=== PATIENT | female | born 1975 | race Caucasian/White ===

== ENCOUNTER → 2017-03-02 | Outpatient (CLI) | payer BC | LOC: FIMAGING 13:26 | PROVIDERS: ATTEND Advanced Practice Midwife | DX: O09.512 Supervision of elderly primigravida, second trimester (principal); Z3A.19 19 weeks gestation of pregnancy ==

== ENCOUNTER → 2017-03-30 | Outpatient (CLI) | payer BC | LOC: FIMAGING 08:26 | PROVIDERS: ATTEND Advanced Practice Midwife | DX: O09.512 Supervision of elderly primigravida, second trimester (principal); O09.812 Supervision of pregnancy resulting from assisted reproductive technology, second trimester; Z3A.23 23 weeks gestation of pregnancy ==

== ENCOUNTER 2017-07-20 06:00 | Inpatient (IN) | payer BC ==
--- NOTE | 2017-07-21 12:47 | PDGENHP ---
History and Physical - Chief Complaint IOL 39 wks, Elective, AMA - History of Present Illness Ramona is a very pleasant 41 yo G1 now at 39wks by IVF FET transfer date who presents for scheduled IOL. She was 1cm in clinic yesterday and had holey balloon placed by [place]. Had some irregular cramps overnight, but nothing terrible. Was delayed a bit in starting things this AM bc of busy staffing issues on L&D. Pregnany only really complicated by AMA and IF . Did have 3rd tri growth US (reassuring) and normal echo. Had testing from 36 wks onward that was also reassuring w/ NSTs and TEREZA. History Information - Allergies/Home Medication List Allergies/Adverse Reactions: No Known Allergies Allergy (Unverified 07/21/17 12:31) Home Medications: Ferrous Sulfate [Feosol] 325 mg PO 07/21/17 [Last Taken 1 Day Ago ~07/20/17] Vit27&Calcium/Iron/FA [] 07/21/17 [Last Taken 1 Day Ago ~07/20] I have personally reviewed and updated: family history, medical history, social history, surgical history Past Medical History: Anemia, Infertility - Surgical History Reports: no pertinent surgical hx Review of Systems Review of Systems: ROS: 10pt was reviewed & negative except for what was stated in HPI & below Physical Exam Physical Exam: Pleasant, NAD, Belly is soft, gravid. Lab Data & Imaging Review 07/21/17 12:45 Laboratory Tests 05/29/14 05/29/14 06/30/16 11:40 11:55 12:00 Gestat Glucose Screen Alpha Fetoprotein 25-OH Vitamin D Total 41.2 TSH 1.140 RPR C.trachomatis RNA (TMA) NEGATIVE Hep Bs Antigen N.gonorrhoeae RNA (TMA) NEGATIVE HPV High Risk NEGATIVE Rubella IgG Antibody Group B Strep DNA 12/27/16 12/27/16 03/06/17 09:50 09:50 12:30 Gestat Glucose Screen Alpha Fetoprotein See Comment 25-OH Vitamin D Total TSH RPR NONREACTIVE C.trachomatis RNA (TMA) Hep Bs Antigen NEGATIVE N.gonorrhoeae RNA (TMA) HPV High Risk Rubella IgG Antibody 5.89 Group B Strep DNA 04/23/17 06/30/17 12:05 Unknown Gestat Glucose Screen 97 Alpha Fetoprotein 25-OH Vitamin D Total TSH RPR C.trachomatis RNA (TMA) Hep Bs Antigen N.gonorrhoeae RNA (TMA) HPV High Risk Rubella IgG Antibody Group B Strep DNA POSITIVE H Assessment & Plan Assessment: 41 yo G1 at 39w0d here for elective IOL. - Routine admission orders. - Plan will be to leave balloon in place for now and start Pitocin. If/when balloon falls out can recheck and consider AROM at that time. May take balloon down to expedite that in a few hrs after we've established regular uncomfortable ctx's. - GBS positive - Ampicillin once in labor. - Rubella non-imune - will need PP MMR.
[2017-07-21] MEDS ORDERED: LR 500 ML IV PRN (12:48)
[2017-07-21] MEDS ORDERED: MISOPROSTOL 200 MCG TAB PO PRN (12:48)
[2017-07-21] MEDS ORDERED: TERBUTALINE SULFATE 1 MG/ML VIAL IV PRN (12:48)
[2017-07-21] MEDS ORDERED: EPSOM SALT 454 GM TP PRN (12:48)
[2017-07-21] MEDS ORDERED: OXYTOCIN/RINGERS LACTATE 1,000 ML IV PRN (12:48)
[2017-07-21] MEDS ORDERED: IBUPROFEN 600 MG TAB PO PRN (12:48)
[2017-07-21] MEDS ORDERED: LIDOCAINE 1% 300 MG/30 ML SDV SC PRN (12:48)
[2017-07-21] MEDS ORDERED: AMMONIA AROMATIC 1 EACH AMP IH PRN (12:48)
[2017-07-21] MEDS ORDERED: OLIVE OIL 118 ML BTL MISC PRN (12:48)
[2017-07-21] MEDS ORDERED: AMPICILLIN SODIUM 2 GM in NS 100 ML IV ONE ×2 (13:04→19:15)
[2017-07-21] MEDS: OXYTOCIN/RINGERS LACTATE 500 ML IV SCH (13:20)
[2017-07-21] MEDS: LR 1,000 ML IV PRN (13:20)
[2017-07-21 13:21] LABS: PLATELET COUNT 217 10^3/uL (150-400)
[2017-07-21] MEDS ORDERED: LIDOCAINE 1% 300 MG/30 ML SDV ONE (14:59)
[2017-07-21] MEDS ORDERED: OXYTOCIN 10 UNIT/ML VIAL ONE (15:00)
[2017-07-21] MEDS ORDERED: OLIVE OIL 118 ML BTL ONE (15:00)
[2017-07-21] MEDS ORDERED: AMMONIA AROMATIC 1 EACH AMP IH ONE (15:00)
[2017-07-21] MEDS ORDERED: MISOPROSTOL 200 MCG TAB ONE (15:00)
[2017-07-21] MEDS ORDERED: AMPICILLIN SODIUM 1 GM in NS 50 ML IV SCH ×2 (17:07→23:00)
[2017-07-21] MEDS ORDERED: diphenhydrAMINE 25 MG CAP PO PRN (21:58)
--- NOTE | 2017-07-22 02:42 | OBPROG ---
Labor Progress Note Assessment/Plan: Assessment: Talked to Ramona about options and I'm fine with turning Pit off and having her get some rest and then restarting in the AM with Pit and AROM. Will dc Pit now, monitor for 2 hrs, then can come off monitor. Will start Pit back up and 5am and can AROM when first checked by Angie in the AM. Received 2g Amp loading dose, will give that dose again starting at 5am, then 1 g/hr. Subjective/Intrapartum Course: Update: Today was started Pitocin for Ramona w/ balloon still in place. When she had regular ctx's (never painful) I took down the balloon at 80/-2 and offered AROM but pt wanted to wait. Ultimately Pit got to 18 without really any painful ctx's and when offered AROM in the late evening vs sleep overnight and AROM and Pit in the AM, she'd prefer the later. Objective: 07/21/17 12:45 Patient ABO/Rh O POSITIVE 07/21/17 12:45 - SVE Dilation (cm): 1 Effacement (%): 80 Station: -2 Membranes: Intact - Contraction Pattern Assessment Current Contraction Pattern: Regular - FHR Assessment Rogers FHR (bpm): 135 FHR Pattern Variability: Moderate FHR Category: 1 Oxytocin Orders Assessment - Pre-Induction/Augmentation Assessment Gestational Age: 39 week(s) and 3 day(s) ICD10 Worksheet Patient Problems: Problems Problem Status Onset AMA (advanced maternal age) primigravida 35+ Acute - ICD10 Problem Qualifiers (1) AMA (advanced maternal age) primigravida 35+ Qualifiers: Trimester: third trimester Qualified Code(s): O09.513 - Supervision of elderly primigravida, third trimester
[2017-07-22] MEDS ORDERED: AMPICILLIN SODIUM 2 GM in NS 100 ML IV ONE (05:00)
[2017-07-22] MEDS: OXYTOCIN/RINGERS LACTATE 500 ML IV SCH (05:55)
[2017-07-22] MEDS: AMPICILLIN SODIUM 1 GM in NS 50 ML IV SCH ×5 (06:13→23:49)
--- NOTE | 2017-07-22 09:19 | OBPROG ---
Labor Progress Note Assessment/Plan: Assessment: [id number] with IUP@ 39-2wks Elective IOL GBS + Cat 1 FHR tracing AMA IVF anemia Rubella NI Plan: cont IOL- knight balloon inserted will cont pitocin and IV abx plan to AROM once knight out pain management PRN anticipate Subjective/Intrapartum Course: Update: Today was started Pitocin for Ramona w/ balloon still in place. When she had regular ctx's (never painful) I took down the balloon at 1/80/-2 and offered AROM but pt wanted to wait. Ultimately Pit got to 18 without really any painful ctx's and when offered AROM in the late evening vs sleep overnight and AROM and Pit in the AM, she'd prefer the later. 07/22/17 09:18 Pt doing well. She denies any pain. She was able to rest throughout the night. She did eat breakfast. She is ready to "restart" her IOL. She is agreeable to knight balloon. Objective: 07/21/17 12:45 Patient ABO/Rh O POSITIVE 07/21/17 12:45 - SVE Dilation (cm): 1 Effacement (%): 50 Station: -2 Membranes: Intact - Contraction Pattern Assessment Current Contraction Pattern: Regular - FHR Assessment Rogers FHR Pattern Variability: Moderate FHR Category: 1 - Procedures Non-surgical Procedures: Other (Specify) (knight balloon placed with 40mL, pt tolerated procedure well) - Physical Exam General Appearance: WD/WN, alert, no apparent distress Neck: supple Abdomen: non-tender, soft Extremities: normal inspection Skin: normal color, warm/dry Neuro/Psych: no motor/sensory deficits, alert, normal mood/affect, oriented x 3 Oxytocin Orders Assessment - Pre-Induction/Augmentation Assessment Gestational Age: 39 week(s) and 3 day(s) ICD10 Worksheet Patient Problems: Problems Problem Status Onset AMA (advanced maternal age) primigravida 35+ Acute Conceived by in vitro fertilization Acute Encounter for induction of labor Acute Positive GBS test Acute - ICD10 Problem Qualifiers (1) Encounter for induction of labor (2) Conceived by in vitro fertilization (3) Positive GBS test
[2017-07-22] MEDS: LR 1,000 ML IV PRN (10:27)
--- NOTE | 2017-07-22 13:21 | OBPROG ---
Labor Progress Note Assessment/Plan: Assessment: [id number] with IUP@ 39-2wks Elective IOL GBS + Cat 1 FHR tracing AMA IVF anemia Rubella NI Plan: pt will consider AROM- as i recommended pain management PRN anticipate 07/22/17 13:17 Subjective/Intrapartum Course: Update: Today was started Pitocin for Ramona w/ balloon still in place. When she had regular ctx's (never painful) I took down the balloon at 1/80/-2 and offered AROM but pt wanted to wait. Ultimately Pit got to 18 without really any painful ctx's and when offered AROM in the late evening vs sleep overnight and AROM and Pit in the AM, she'd prefer the later. 07/22/17 09:18 Pt doing well. She denies any pain. She was able to rest throughout the night. She did eat breakfast. She is ready to "restart" her IOL. She is agreeable to knight balloon. 07/22/17 13:17 Pt doing well, denies any pain. She is ambulating and moving well. Knight balloon out at 12:30pm. agreeable to membrane sweep- declines arom at this time. Objective: 07/21/17 12:45 Patient ABO/Rh O POSITIVE 07/21/17 12:45 - SVE Dilation (cm): 4 Effacement (%): 50 Station: -2 Membranes: Intact - Contraction Pattern Assessment Current Contraction Pattern: Regular - FHR Assessment Rogers FHR (bpm): 135 FHR Pattern Variability: Moderate FHR Category: 1 - Procedures Non-surgical Procedures: Other (Specify) (Knight balloon @ 1230) Oxytocin Orders Assessment - Pre-Induction/Augmentation Assessment Gestational Age: 39 week(s) and 3 day(s) ICD10 Worksheet Patient Problems: Problems Problem Status Onset AMA (advanced maternal age) primigravida 35+ Acute Conceived by in vitro fertilization Acute Encounter for induction of labor Acute Positive GBS test Acute - ICD10 Problem Qualifiers (1) Encounter for induction of labor (2) Conceived by in vitro fertilization (3) Positive GBS test
--- NOTE | 2017-07-22 14:00 | OBPROG ---
Labor Progress Note Assessment/Plan: Assessment: [id number] with IUP@ 39-2wks Elective IOL GBS + Cat 1 FHR tracing AMA IVF anemia Rubella NI AROM- clear Plan: half pitocin at this time, will cont to increase reassess 2-4hr/PRN anticipate Subjective/Intrapartum Course: Update: Today was started Pitocin for Ramona w/ balloon still in place. When she had regular ctx's (never painful) I took down the balloon at /-2 and offered AROM but pt wanted to wait. Ultimately Pit got to 18 without really any painful ctx's and when offered AROM in the late evening vs sleep overnight and AROM and Pit in the AM, she'd prefer the later. 07/22/17 09:18 Pt doing well. She denies any pain. She was able to rest throughout the night. She did eat breakfast. She is ready to "restart" her IOL. She is agreeable to knight balloon. 07/22/17 13:17 Pt doing well, denies any pain. She is ambulating and moving well. Knight balloon out at 12:30pm. agreeable to membrane sweep- declines arom at this time. Objective: 07/21/17 12:45 Patient ABO/Rh O POSITIVE 07/21/17 12:45 - SVE Dilation (cm): 4 Effacement (%): 50 Station: -2 Membranes: AROM Amniotic Fluid Color: Clear - Contraction Pattern Assessment Current Contraction Pattern: Regular - Procedures Non-surgical Procedures: Amniotomy, Other (Specify) (Knight balloon @ 1230) Oxytocin Orders Assessment - Pre-Induction/Augmentation Assessment Gestational Age: 39 week(s) and 3 day(s) ICD10 Worksheet Patient Problems: Problems Problem Status Onset AMA (advanced maternal age) primigravida 35+ Acute Conceived by in vitro fertilization Acute Encounter for induction of labor Acute Positive GBS test Acute - ICD10 Problem Qualifiers (1) Encounter for induction of labor (2) Conceived by in vitro fertilization (3) Positive GBS test
--- NOTE | 2017-07-22 16:22 | OBPROG ---
Labor Progress Note Assessment/Plan: Assessment: [id number] with IUP@ 39-2wks Elective IOL GBS + Cat 1 FHR tracing AMA IVF anemia Rubella NI AROM- clear Plan: cont to increase pitocin pain management PRN reassess 2-4hr/PRN anticipate Subjective/Intrapartum Course: Update: Today was started Pitocin for Ramona w/ balloon still in place. When she had regular ctx's (never painful) I took down the balloon at 80/-2 and offered AROM but pt wanted to wait. Ultimately Pit got to 18 without really any painful ctx's and when offered AROM in the late evening vs sleep overnight and AROM and Pit in the AM, she'd prefer the later. 07/22/17 09:18 Pt doing well. She denies any pain. She was able to rest throughout the night. She did eat breakfast. She is ready to "restart" her IOL. She is agreeable to knight balloon. 07/22/17 13:17 Pt doing well, denies any pain. She is ambulating and moving well. Knight balloon out at 12:30pm. agreeable to membrane sweep- declines arom at this time. 07/22/17 16:13 Pt doing well, she is resting in bed. She denies any pain or pressure. Deniz, , is at BS and supportive. Objective: 07/21/17 12:45 Patient ABO/Rh O POSITIVE 07/21/17 12:45 - SVE Membranes: AROM Amniotic Fluid Color: Clear - Contraction Pattern Assessment Current Contraction Pattern: Regular - FHR Assessment Rogers FHR (bpm): 135 FHR Pattern Variability: Moderate FHR Category: 1 - Procedures Non-surgical Procedures: Amniotomy, Other (Specify) (Knight balloon @ 1230) Oxytocin Orders Assessment - Pre-Induction/Augmentation Assessment Gestational Age: 39 week(s) and 3 day(s) ICD10 Worksheet Patient Problems: Problems Problem Status Onset AMA (advanced maternal age) primigravida 35+ Acute Conceived by in vitro fertilization Acute Encounter for induction of labor Acute Positive GBS test Acute - ICD10 Problem Qualifiers (1) Encounter for induction of labor (2) Conceived by in vitro fertilization (3) Positive GBS test
--- NOTE | 2017-07-22 21:34 | OBPROG ---
Labor Progress Note Assessment/Plan: Assessment: [id number] with IUP@ 39-2wks Elective IOL- pitocin @ GBS + Cat 1 FHR tracing AMA IVF anemia Rubella NI AROM- clear Ketonuria Plan: IUPC placed at this time cont pitocin will hang D5LR (500mL) reassess PRN 07/22/17 22:43 Subjective/Intrapartum Course: Update: Today was started Pitocin for Ramona w/ balloon still in place. When she had regular ctx's (never painful) I took down the balloon at /-2 and offered AROM but pt wanted to wait. Ultimately Pit got to 18 without really any painful ctx's and when offered AROM in the late evening vs sleep overnight and AROM and Pit in the AM, she'd prefer the later. 07/22/17 09:18 Pt doing well. She denies any pain. She was able to rest throughout the night. She did eat breakfast. She is ready to "restart" her IOL. She is agreeable to knight balloon. 07/22/17 13:17 Pt doing well, denies any pain. She is ambulating and moving well. Knight balloon out at 12:30pm. agreeable to membrane sweep- declines arom at this time. 07/22/17 16:13 Pt doing well, she is resting in bed. She denies any pain or pressure. Deniz, , is at BS and supportive. 07/22/17 18:25 Pt vomiting and having chills. She denies any pain or pressure. she is feeling more with contractions, having to breathe through them. Desires to labor in alternative positions (squat bar, ball, stool, etc). Deniz is at BS and supportive. Objective: 07/21/17 12:45 Patient ABO/Rh O POSITIVE 07/21/17 12:45 - SVE Dilation (cm): 4 Effacement (%): 50 Station: -2 Membranes: AROM Amniotic Fluid Color: Clear - Contraction Pattern Assessment Current Contraction Pattern: Regular - Procedures Non-surgical Procedures: IUPC (placed @ 1815) Oxytocin Orders Assessment - Pre-Induction/Augmentation Assessment Gestational Age: 39 week(s) and 3 day(s) ICD10 Worksheet Patient Problems: Problems Problem Status Onset AMA (advanced maternal age) primigravida 35+ Acute Conceived by in vitro fertilization Acute Encounter for induction of labor Acute Positive GBS test Acute - ICD10 Problem Qualifiers (1) Encounter for induction of labor (2) Conceived by in vitro fertilization (3) Positive GBS test
[2017-07-22] MEDS ORDERED: BUPIVACAINE 0.25% 30 ML SDV ONE (21:53)
[2017-07-22] MEDS ORDERED: PHENYLEPHRINE HCL 100 MCG/ML SYR ONE (21:54)
[2017-07-22] MEDS ORDERED: fentaNYL 200 MCG, BUPIVACAINE 0.5% 20 ML in NS 100 ML EP SCH (22:00)
--- NOTE | 2017-07-22 22:39 | PREANESOB ---
Obstetric Pre-Anesthesia Info - General Info Proposed Procedure: labor : 1 Para: 0 ZANE: 07/25/17 Gestational Age: 39 week(s) and 3 day(s) - Info Status: Full Term FHR Pattern: Reassuring - Labor Status Cervical Dilation per last OB SVE: 4 Station per last OB SVE: -2 Amniotic Fluid Color: Clear Pitocin: In Use Indications for Labor Analgesia: Augmentation of Labor, Pain Control Labor Epidural: Yes Anesthesia Allergies/Adverse Reactions: Allergy/AdvReac Type Severity Reaction Status Date / Time No Known Allergies Allergy Unverified 07/21/17 12:31 Home Medications: Medication Instructions Recorded Ferrous Sulfate [Feosol] 325 mg PO 07/21/17 Vit27&Calcium/Iron/FA 07/21/17 [] Visit Medications: Generic Name Dose Route Start Last Admin Trade Name Freq PRN Reason Stop Dose Admin Ammonia (Aromatic Spirit) 1 each 07/21/17 12:48 Ammonia Aromatic IH 07/31/17 12:47 ONCE PRN Fainting Diphenhydramine HCl 25 - 50 mg 07/21/17 21:58 07/21/17 22:09 Benadryl PO 01/17/18 21:57 25 mg HS PRN Administration INSOMNIA Oxytocin/Lactated Ringer's 1,000 mls @ 0 mls/hr 07/21/17 12:48 Pitocin 20 Units/Lr (Premix) IV PRN PRN Post bleeding As Directed Oxytocin/Lactated Ringer's 500 mls @ 0 mls/hr 07/21/17 13:00 07/22/17 05:55 Pitocin 30 Units/Lr (Premix) IV 01/17/18 12:59 500 mls CONT JARRED Administration Protocol Per Protocol Ampicillin Sodium 1 gm/ Sodium 50 mls @ 100 mls/hr 07/22/17 06:00 07/22/17 19 :04 Chloride IV 08/21/17 05:59 50 mls Q4H JARRED Administration Protocol Fentanyl 200 mcg/ Bupivacaine 100 mls @ 0 mls/hr 07/22/17 22:00 HCl 20 ml/ Sodium Chloride EP 08/01/17 21:59 CONT JARRED Protocol As Directed Ibuprofen 600 mg 07/21/17 12:48 Motrin PO ONCE PRN post , pain Lidocaine HCl 300 mg 07/21/17 12:48 Lidocaine Hcl 1% SC 01/17/18 12:47 ONCE PRN episiotomy Magnesium Sulfate 454 gm 07/21/17 12:48 Epsom Salt TP 01/17/18 12:47 Q1H PRN perineal discomfort Misoprostol 800 - 1,000 mcg 07/21/17 12:48 Cytotec PO 01/17/18 12:47 ONCE PRN Vaginal Atony/Bleeding Tarlton Oil 118 ml 07/21/17 12:48 Sweet Oil MISC 01/17/18 12:47 ONCE PRN perineal massage Terbutaline Sulfate 0.25 mg 07/21/17 12:48 Brethine IV 01/17/18 12:47 ONCE PRN Tachysystole Discontinued Medications Generic Name Dose Route Start Last Admin Trade Name Mauri PRN Reason Stop Dose Admin Ammonia (Aromatic Spirit) Confirm 07/21/17 15:00 Ammonia Aromatic Administered 07/21/17 15:01 Dose 1 each IH .STK-MED ONE Bupivacaine HCl Confirm 07/22/17 21:53 Sensorcaine 0.25% Sdv Administered 07/22/17 21:54 Dose 30 ml .ROUTE .STK-MED ONE Lactated Ringer's 1,000 mls @ 0 mls/hr 07/21/17 12:48 07/22/17 10:27 Lr IV 07/22/17 12:47 1,000 mls PRN PRN Administration SEE PROTOCOL CONDITIONS Protocol Per Protocol Lactated Ringer's 500 mls @ 500 mls/hr 07/21/17 12:48 Lr IV 07/22/17 12:48 PRN PRN Maternal Hypotension Ampicillin Sodium 2 gm/ Sodium 110 mls @ 220 mls/hr 07/21/17 13:04 07/21/17 15:33 Chloride IV 07/21/17 13:33 Not Given ONCE ONE Protocol Ampicillin Sodium 1 gm/ Sodium 50 mls @ 100 mls/hr 07/21/17 17:07 07/21/17 21 :02 Chloride IV 08/20/17 17:06 Not Given Q4H JARRED Protocol Ampicillin Sodium 2 gm/ Sodium 110 mls @ 220 mls/hr 07/21/17 19:15 07/21/17 19:45 Chloride IV 07/21/17 19:44 110 mls ONCE ONE Administration Protocol Ampicillin Sodium 1 gm/ Sodium 50 mls @ 100 mls/hr 07/21/17 23:00 07/21/17 22 :12 Chloride IV 08/20/17 22:59 Not Given Q4H JARRED Protocol Ampicillin Sodium 2 gm/ Sodium 110 mls @ 220 mls/hr 07/22/17 05:00 07/22/17 06:23 Chloride IV 07/22/17 05:29 Not Given ONCE ONE Protocol Lidocaine HCl Confirm 07/21/17 14:59 Lidocaine Hcl 1% Administered 07/21/17 15:00 Dose 300 mg .ROUTE .STK-MED ONE Misoprostol Confirm 07/21/17 15:00 Cytotec Administered 07/21/17 15:01 Dose 1,000 mcg .ROUTE .STK-MED ONE Tarlton Oil Confirm 07/21/17 15:00 Sweet Oil Administered 07/21/17 15:01 Dose 118 ml .ROUTE .STK-MED ONE Oxytocin Confirm 07/21/17 15:00 Pitocin Administered 07/21/17 15:01 Dose 40 unit .ROUTE .STK-MED ONE Phenylephrine HCl Confirm 07/22/17 21:54 Neosynephrine Administered 07/22/17 21:55 Dose 1,000 mcg .ROUTE .STK-MED ONE - Anesthesia History Response to Local Anesthetics: Normal Anesthesia & Operative History: No Prior Problems Family Anesthesia History: Not Applicable - Vital Signs Height/Weight (Nursing): Height 165.1 cm Weight 63.049 kg - Focused Exam Neck exam: FROM Mallampati Score: Class 1 Mouth exam: normal dental/mouth exam Pulmonary: no respiratory distress Cardiovascular: regular rate and rhythym Labs: 07/21/17 12:45 Patient ABO/Rh O POSITIVE 07/21/17 12:45 - Plan Anesthetic Plan: KURT Consent Signed and on Chart: Yes Patient/Guardian Understands and Agrees to Plan: Yes
--- NOTE | 2017-07-22 22:39 | POSTANESTH ---
Post Anesthetic Evaluation Cardiovascular Status: Normal, Stable Respiratory Status: Normal, Stable Level of Consciousness/Mental Status: Can Participate in Eval, Alert and Oriented Pain Control: Adequate, Prn Tx Ordered Nausea/Vomiting Control: Adequate, Prn Tx Ordered Complications Possibly Related to Anesthesia: None Noted
--- NOTE | 2017-07-22 22:46 | OBPROG ---
Labor Progress Note Assessment/Plan: Assessment: [id number] with IUP@ 39-2wks Elective IOL GBS + Cat 1 FHR tracing AMA IVF anemia Rubella NI AROM- clear KURT in place Plan: cont pitocin/IV abx reassess PRN discussed prolong ROM, need for adequate contractions reviewed POC with Dr Lau agrees with POC 07/22/17 22:46 Subjective/Intrapartum Course: Update: Today was started Pitocin for Ramona w/ balloon still in place. When she had regular ctx's (never painful) I took down the balloon at /-2 and offered AROM but pt wanted to wait. Ultimately Pit got to 18 without really any painful ctx's and when offered AROM in the late evening vs sleep overnight and AROM and Pit in the AM, she'd prefer the later. 07/22/17 09:18 Pt doing well. She denies any pain. She was able to rest throughout the night. She did eat breakfast. She is ready to "restart" her IOL. She is agreeable to knight balloon. 07/22/17 13:17 Pt doing well, denies any pain. She is ambulating and moving well. Knight balloon out at 12:30pm. agreeable to membrane sweep- declines arom at this time. 07/22/17 16:13 Pt doing well, she is resting in bed. She denies any pain or pressure. Deniz, , is at BS and supportive. 07/22/17 18:25 Pt vomiting and having chills. She denies any pain or pressure. she is feeling more with contractions, having to breathe through them. Desires to labor in alternative positions (squat bar, ball, stool, etc). Deniz is at BS and supportive. 07/22/17 22:44 Pt doing well, KURT just placed. She is resting. Objective: 07/21/17 12:45 Patient ABO/Rh O POSITIVE 07/21/17 12:45 - SVE Membranes: AROM Amniotic Fluid Color: Clear - Contraction Pattern Assessment Current Contraction Pattern: Regular - Procedures Non-surgical Procedures: IUPC (placed @ 1815) Oxytocin Orders Assessment - Pre-Induction/Augmentation Assessment Gestational Age: 39 week(s) and 3 day(s) ICD10 Worksheet Patient Problems: Problems Problem Status Onset AMA (advanced maternal age) primigravida 35+ Acute Conceived by in vitro fertilization Acute Encounter for induction of labor Acute Positive GBS test Acute - ICD10 Problem Qualifiers (1) Encounter for induction of labor (2) Conceived by in vitro fertilization (3) Positive GBS test
--- NOTE | 2017-07-23 03:38 | OBPROG ---
Labor Progress Note Assessment/Plan: Assessment: [id number] with IUP@ 39-2wks Elective IOL GBS + Cat 1 FHR tracing AMA IVF anemia Rubella NI AROM- clear KURT in place Plan: cont pitocin/IV abx attempt different positions to promote descent will cont as pt has made small amt of change if recurrent decels, unresolved with position changes will make decision to proceed with c/s reviewed with Lisa Lau- agrees with POC Subjective/Intrapartum Course: Update: Today was started Pitocin for Ramona w/ balloon still in place. When she had regular ctx's (never painful) I took down the balloon at 1/80/-2 and offered AROM but pt wanted to wait. Ultimately Pit got to 18 without really any painful ctx's and when offered AROM in the late evening vs sleep overnight and AROM and Pit in the AM, she'd prefer the later. 07/22/17 09:18 Pt doing well. She denies any pain. She was able to rest throughout the night. She did eat breakfast. She is ready to "restart" her IOL. She is agreeable to knight balloon. 07/22/17 13:17 Pt doing well, denies any pain. She is ambulating and moving well. Knight balloon out at 12:30pm. agreeable to membrane sweep- declines arom at this time. 07/22/17 16:13 Pt doing well, she is resting in bed. She denies any pain or pressure. Deniz, , is at BS and supportive. 07/22/17 18:25 Pt vomiting and having chills. She denies any pain or pressure. she is feeling more with contractions, having to breathe through them. Desires to labor in alternative positions (squat bar, ball, stool, etc). Deniz is at BS and supportive. 07/22/17 22:44 Pt doing well, KURT just placed. She is resting. 07/23/17 03:38 Pt doing well, denies any pain. She is comfortable with KURT, she has been able to rest more now that she is more comfortable. She is been sitting in high fowlers position as that is best for FHR. She does not wish to proceed with C/S , aware of protracted labor course. at BS and supportive. Objective: 07/21/17 12:45 Patient ABO/Rh O POSITIVE 07/21/17 12:45 - SVE Dilation (cm): 5 Effacement (%): 75 Station: -1 Membranes: AROM Amniotic Fluid Color: Clear - Contraction Pattern Assessment Current Contraction Pattern: Regular - Procedures Non-surgical Procedures: IUPC (placed @ 1815) Oxytocin Orders Assessment - Pre-Induction/Augmentation Assessment Gestational Age: 39 week(s) and 3 day(s) ICD10 Worksheet Patient Problems: Problems Problem Status Onset AMA (advanced maternal age) primigravida 35+ Acute Conceived by in vitro fertilization Acute Encounter for induction of labor Acute Positive GBS test Acute - ICD10 Problem Qualifiers (1) Encounter for induction of labor (2) Conceived by in vitro fertilization (3) Positive GBS test
[2017-07-23] MEDS: AMPICILLIN SODIUM 1 GM in NS 100 ML IV SCH ×2 (04:48→19:09)
[2017-07-23] MEDS ORDERED: LIDOCAINE 2% 5 ML SDV ONE ×2 (07:49)
[2017-07-23] MEDS ORDERED: OXYTOCIN 100 UNITS/10 ML VIAL ONE (07:49)
[2017-07-23] MEDS ORDERED: LIDO/EPI 2% **for epidural** 20 ML SDV ONE (07:49)
[2017-07-23] MEDS ORDERED: PHENYLEPHRINE 10 MG/ML SDV ONE (07:49)
[2017-07-23] MEDS ORDERED: fentaNYL 100 MCG/2 ML INJ ONE (07:50)
[2017-07-23] MEDS ORDERED: morphINE PF 5 MG/10 ML INJ ONE (07:51)
--- NOTE | 2017-07-23 07:55 | OBPROG ---
Labor Progress Note Assessment/Plan: Assessment: NOTE WRITTEN AFTER EVENT IUP at 39w5d induction - pushing now approx 1 1/2 hours, arrest of descent with persistent OT attempted vacuum assistance, unsuccessful Plan: proceed with c/s by Dr Glover 07/23/17 07:51 Subjective/Intrapartum Course: Update: Today was started Pitocin for Ramona w/ balloon still in place. When she had regular ctx's (never painful) I took down the balloon at /-2 and offered AROM but pt wanted to wait. Ultimately Pit got to 18 without really any painful ctx's and when offered AROM in the late evening vs sleep overnight and AROM and Pit in the AM, she'd prefer the later. 07/22/17 09:18 Pt doing well. She denies any pain. She was able to rest throughout the night. She did eat breakfast. She is ready to "restart" her IOL. She is agreeable to knight balloon. 07/22/17 13:17 Pt doing well, denies any pain. She is ambulating and moving well. Knight balloon out at 12:30pm. agreeable to membrane sweep- declines arom at this time. 07/22/17 16:13 Pt doing well, she is resting in bed. She denies any pain or pressure. Deniz, , is at BS and supportive. 07/22/17 18:25 Pt vomiting and having chills. She denies any pain or pressure. she is feeling more with contractions, having to breathe through them. Desires to labor in alternative positions (squat bar, ball, stool, etc). Deniz is at BS and supportive. 07/22/17 22:44 Pt doing well, KURT just placed. She is resting. 07/23/17 03:38 Pt doing well, denies any pain. She is comfortable with KURT, she has been able to rest more now that she is more comfortable. She is been sitting in high fowlers position as that is best for FHR. She does not wish to proceed with C/S , aware of protracted labor course. at BS and supportive. 07/23/17 07:55 I was called into assess FHTs and labor progress approx 5am. Pt has had off/on late decels throughout much of labor with more cervical change since 4 am - she was 5 cm at 3am but progress to 8cm then complete dilation at 5:13. pt began pushing and hoped to avoid vacuum but she had rise in baseline and persistence of the late decels and I rec vacuum asst. Head at +1 station in OT position - little caput initially but has progressed over time. Pt and husb agreed and vacuum was placed and 3 pulls with ctxns, no pop-offs were done approx 6:30. no descent with assistance of vacuum. Vacuum attempt stopped but then FHTs improved and baseline back to 150s between ctxns with very reassuring variability and pt cont attempts with pushing with changes of position/sheet pull/ hand-knees etc. Pt had then add'n pushing for approx 45 min but no further descent and pt wishes to proceed with C/S for delivery. risks/ benefits discussed with pt by Dr Glover and consent to be signed later. Fhts have maintained reassuring variability and when pit stopped then baseline 140s with no decels. Dr Hernandez of anesth dosing up KURT for c/s delivery. Objective: 07/21/17 12:45 Patient ABO/Rh O POSITIVE 07/21/17 12:45 - SVE Dilation (cm): 10 Effacement (%): 100 Station: +1 Membranes: AROM Amniotic Fluid Color: Clear Dilation Complete Date: 07/23/17 Dilation Complete Time: 05:13 - Contraction Pattern Assessment Current Contraction Pattern: Regular (q 3 min on 16 mu/min pit) - FHR Assessment Rogers FHR (bpm): 140 FHR Pattern Variability: Moderate FHR Category: 2 (variable/late decels on/off) - Procedures Non-surgical Procedures: IUPC (placed @ 1815) Oxytocin Orders Assessment - Pre-Induction/Augmentation Assessment Gestational Age: 39 week(s) and 3 day(s) ICD10 Worksheet Patient Problems: Problems Problem Status Onset AMA (advanced maternal age) primigravida 35+ Acute Conceived by in vitro fertilization Acute Encounter for induction of labor Acute Positive GBS test Acute
[2017-07-23] MEDS ORDERED: ceFAZolin 2 GM in D5W 100 ML IV ONE (08:00)
[2017-07-23] MEDS ORDERED: ONDANSETRON 4 MG/2 ML VIAL ONE (09:00)
[2017-07-23] MEDS ORDERED: HYDROmorphONE/DILAUDID 1 MG/ML INJ IVP PRN (09:41)
[2017-07-23] MEDS ORDERED: fentaNYL 100 MCG/2 ML INJ IVP PRN (09:41)
[2017-07-23] MEDS ORDERED: PHENYLEPHRINE HCL 100 MCG/ML SYR IVP PRN (09:41)
[2017-07-23] MEDS ORDERED: ONDANSETRON 4 MG/2 ML VIAL IVP PRN (09:41)
[2017-07-23] MEDS ORDERED: NALOXONE HCL 0.4 MG/ML INJ IVP PRN (09:41)
[2017-07-23] MEDS ORDERED: HYDROCODONE/APAP 5/325 TAB PO PRN (09:41)
--- NOTE | 2017-07-23 09:45 | POSTANESTH ---
Post Anesthetic Evaluation Cardiovascular Status: Normal, Stable Respiratory Status: Normal, Stable Level of Consciousness/Mental Status: Can Participate in Eval Pain Control: Adequate, Prn Tx Ordered Nausea/Vomiting Control: Adequate, Prn Tx Ordered Complications Possibly Related to Anesthesia: None Noted (awake and alert in PACU, epidural regressing normally, VS stable)
[2017-07-23] MEDS ORDERED: SIMETHICONE 80 MG TAB CHEW PO PRN (10:30)
[2017-07-23] MEDS ORDERED: PROMETHAZINE HCL 25 MG/ML INJ IVP PRN (10:30)
[2017-07-23] MEDS ORDERED: DOCUSATE SODIUM 100 MG CAP PO PRN (10:30)
[2017-07-23] MEDS ORDERED: MAGNESIUM HYDROXIDE 30 ML UDCUP PO PRN (10:30)
[2017-07-23] MEDS ORDERED: LACTULOSE 20 GM/30 ML UDCUP PO PRN (10:30)
[2017-07-23] MEDS ORDERED: BISACODYL 10 MG SUPP PR PRN (10:30)
[2017-07-23] MEDS ORDERED: POLYETHYLENE GLYCOL 3350 17 GM PKT PO PRN (10:30)
--- NOTE | 2017-07-23 10:30 | OBDEL ---
Info Type: Primary Presentation at Delivery: Vertex L&D Analgesia/Anesthesia Type: Spinal GBS+: Yes Antibiotic Used for + GBS: Ampicillin Intrapartum Medications: Generic Name Dose Route Start Last Admin Trade Name Freq PRN Reason Stop Dose Admin Diphenhydramine HCl 25 - 50 mg 07/21/17 21:58 07/21/17 22:09 Benadryl PO 01/17/18 21:57 25 mg HS PRN Administration INSOMNIA Oxytocin/Lactated Ringer's 500 mls @ 0 mls/hr 07/21/17 13:00 07/22/17 05:55 Pitocin 30 Units/Lr (Premix) IV 01/17/18 12:59 500 mls CONT JARRED Administration Protocol Per Protocol Ampicillin Sodium 1 gm/ Sodium 100 mls @ 200 mls/hr 07/23/17 04:00 07/23/17 04:48 Chloride IV 08/22/17 03:59 100 mls Q4H JARRED Administration Protocol Discontinued Medications Generic Name Dose Route Start Last Admin Trade Name Frefelix PRN Reason Stop Dose Admin Lactated Ringer's 1,000 mls @ 0 mls/hr 07/21/17 12:48 07/22/17 10:27 Lr IV 07/22/17 12:47 1,000 mls PRN PRN Administration SEE PROTOCOL CONDITIONS Protocol Per Protocol Ampicillin Sodium 2 gm/ Sodium 110 mls @ 220 mls/hr 07/21/17 13:04 07/21/17 15:33 Chloride IV 07/21/17 13:33 Not Given ONCE ONE Protocol Ampicillin Sodium 1 gm/ Sodium 50 mls @ 100 mls/hr 07/21/17 17:07 07/21/17 21 :02 Chloride IV 08/20/17 17:06 Not Given Q4H JARRED Protocol Ampicillin Sodium 2 gm/ Sodium 110 mls @ 220 mls/hr 07/21/17 19:15 07/21/17 19:45 Chloride IV 07/21/17 19:44 110 mls ONCE ONE Administration Protocol Ampicillin Sodium 1 gm/ Sodium 50 mls @ 100 mls/hr 07/21/17 23:00 07/21/17 22 :12 Chloride IV 08/20/17 22:59 Not Given Q4H JARRED Protocol Ampicillin Sodium 2 gm/ Sodium 110 mls @ 220 mls/hr 07/22/17 05:00 07/22/17 06:23 Chloride IV 07/22/17 05:29 Not Given ONCE ONE Protocol Ampicillin Sodium 1 gm/ Sodium 50 mls @ 100 mls/hr 07/22/17 06:00 07/22/17 23 :49 Chloride IV 08/21/17 05:59 50 mls Q4H JARRED Administration Protocol Cefazolin Sodium 2 gm/ 100 mls @ 200 mls/hr 07/23/17 08:00 07/23/17 08:31 Dextrose IV 07/23/17 08:29 100 mls ONCALL ONE Administration - Hospital Course Intrapartum: Update: Today was started Pitocin for Ramona w/ balloon still in place. When she had regular ctx's (never painful) I took down the balloon at 80/-2 and offered AROM but pt wanted to wait. Ultimately Pit got to 18 without really any painful ctx's and when offered AROM in the late evening vs sleep overnight and AROM and Pit in the AM, she'd prefer the later. 07/22/17 09:18 Pt doing well. She denies any pain. She was able to rest throughout the night. She did eat breakfast. She is ready to "restart" her IOL. She is agreeable to knight balloon. 07/22/17 13:17 Pt doing well, denies any pain. She is ambulating and moving well. Knight balloon out at 12:30pm. agreeable to membrane sweep- declines arom at this time. 07/22/17 16:13 Pt doing well, she is resting in bed. She denies any pain or pressure. Deniz, , is at BS and supportive. 07/22/17 18:25 Pt vomiting and having chills. She denies any pain or pressure. she is feeling more with contractions, having to breathe through them. Desires to labor in alternative positions (squat bar, ball, stool, etc). Deniz is at BS and supportive. 07/22/17 22:44 Pt doing well, KURT just placed. She is resting. 07/23/17 03:38 Pt doing well, denies any pain. She is comfortable with KURT, she has been able to rest more now that she is more comfortable. She is been sitting in high fowlers position as that is best for FHR. She does not wish to proceed with C/S , aware of protracted labor course. at BS and supportive. 07/23/17 07:55 I was called into assess FHTs and labor progress approx 5am. Pt has had off/on late decels throughout much of labor with more cervical change since 4 am - she was 5 cm at 3am but progress to 8cm then complete dilation at 5:13. pt began pushing and hoped to avoid vacuum but she had rise in baseline and persistence of the late decels and I rec vacuum asst. Head at +1 station in OT position - little caput initially but has progressed over time. Pt and husb agreed and vacuum was placed and 3 pulls with ctxns, no pop-offs were done approx 6:30. no descent with assistance of vacuum. Vacuum attempt stopped but then FHTs improved and baseline back to 150s between ctxns with very reassuring variability and pt cont attempts with pushing with changes of position/sheet pull/ hand-knees etc. Pt had then add'n pushing for approx 45 min but no further descent and pt wishes to proceed with C/S for delivery. risks/ benefits discussed with pt by Dr Glover and consent to be signed later. Fhts have maintained reassuring variability and when pit stopped then baseline 140s with no decels. Dr Hernandez of anesth dosing up KURT for c/s delivery. Vaginal Delivery - Labor and Delivery Amniotic Fluid Color: Clear Dilation Complete Date: 07/23/17 Dilation Complete Time: 05:13 Non-surgical Procedures: IUPC (placed @ 1815) Cord Gases: Cord Gases Cord Blood PCO2 47.3 mmHg (37-60) 07/23/17 09:01 Cord Base Excess -3.1 mEq/L (-13.6--3.2) H 07/23/17 09:01 Cord ABG pH 7.31 (7.10-7.37) 07/23/17 09:01 Cord VBG pH 7.33 (7.20-7.42) 07/23/17 09:01 Operative Report - Delivery Pre-op Diagnoses: IUP 39 5/7 weeks, arrest of descent Post-op Diagnoses: same History of Prior Section: No Nulliparous Prior to Delivery: Yes Indications for Current Section: Arrest of Descent Procedure: Unscheduled, Low Transverse Surgeon: Lima Glover Microbial Specialist: Tania Medellin Anesthesiologist: Jr Hernandez EBL: 800 Cord Gases: Cord Gases Cord Blood PCO2 47.3 mmHg (37-60) 07/23/17 09:01 Cord Base Excess -3.1 mEq/L (-13.6--3.2) H 07/23/17 09:01 Cord ABG pH 7.31 (7.10-7.37) 07/23/17 09:01 Cord VBG pH 7.33 (7.20-7.42) 07/23/17 09:01 [place] Data ZANE: 07/25/17 Gestational Age: 39 week(s) and 5 day(s) Rogers Delivery Date: 07/23/17 Delivery Time: 08:54 Weight (gm): 3398 g Score (1 Min): 8 Score (5 Min): 9 ICD10 Worksheet Patient Problems: Problems Problem Status Onset AMA (advanced maternal age) primigravida 35+ Acute Conceived by in vitro fertilization Acute Encounter for induction of labor Acute Positive GBS test Acute
[2017-07-23] MEDS ORDERED: KETOROLAC 30 MG/1 ML SDV ONE (11:08)
[2017-07-23] MEDS: KETOROLAC 30 MG/1 ML SDV IVP SCH ×3 (11:09→23:08)
--- NOTE | 2017-07-23 11:16 | GOP ---
[f rep st] OPERATIVE REPORT DATE OF OPERATION: 07/23/2017 SURGEON: Lima Glover DO BOILER/CHILLER OPERATOR: KEYONA Garcia ANESTHESIA: Epidural. ANESTHESIOLOGIST: Dr. Hernandez. PREOPERATIVE DIAGNOSIS: Intrauterine at 39 and 5/7 weeks gestation, arrest of descent POSTOPERATIVE DIAGNOSIS: Intrauterine at 39 and 5/7 weeks gestation, arrest of descent. PROCEDURE PERFORMED: Primary low transverse section. FINDINGS: 1. Viable female in the cephalic presentation, delivered at 8:54 a.m. Apgars were 8 and 9. 2. Intact placenta with 3-vessel cord. 3. Normal ovaries, uterus and tubes. ESTIMATED BLOOD LOSS: 800 cc. INDICATIONS: Patient is a 41-year-old 1, para 0, who presented for induction of labor per recommendation from Maternal Medicine due to being 41 years old. Patient had a German bulb placed and was brought in for induction of labor on July 21. The German bulb was removed and she was started on Pitocin which did not cause adequate enough contractions. The patient wanted to rest overnight, so she did rest overnight and Pitocin was restarted and a German bulb was placed. The patient progressed into active labor and did receive an epidural. During labor course patient had periods of decreased variability with late decelerations. However, overall status remained reassuring throughout the labor process. The patient progressed to complete, and pushing. She pushed for about 2 hours and a vacuum assisted vaginal delivery was attempted by Dr. Lisa Lau. However, the head did not descend. It is suspected that the head was in the occiput transverse presentation. Multiple attempts were made to reduce this. However, once the patient began pushing, the head would go back into that position. We discussed options of continued pushing and attempting another vacuum assist versus proceeding with a section. The patient declined any further attempts to push or have vacuum assisted delivery and decided to proceed with a primary low transverse section. Risks and benefits of the procedure were reviewed with the patient. The patient was properly consented. DESCRIPTION OF PROCEDURE: Patient was taken to the operating room with intravenous fluids in place. Her epidural was bolused. Venodynes were placed on her lower extremities and a German catheter was in place. She was then prepped and draped in normal sterile fashion. Anesthesia was assessed and found to be adequate. A Pfannenstiel skin incision was then made 2 fingerbreadths above the pubic symphysis. The incision was then carried through to the underlying layer of fascia with the Bovie. The fascia was then nicked in the midline and the fascial incision was extended laterally. The superior aspect of the fascial incision was then grasped with a Yanick, tented up, and the underlying rectus muscle dissected off bluntly with the Bovie. Attention was then turned to the inferior aspect where the fascial incision which in a similar fashion was grasped with a Yanick, tented up, and the underlying rectus muscle dissected off bluntly with the Bovie. The rectus muscle was then in the midline. The peritoneum was then identified, tented up, and entered sharply with the Metzenbaum scissors. The incision was extended superiorly and inferiorly with excellent visualization of the bladder. The bladder blade was then inserted. The vesicouterine peritoneum was identified, tented up, and entered sharply with the Metzenbaum scissors. The incision was extended laterally and a bladder flap was created digitally. The bladder blade was then reinserted. The uterus was then incised in a low- transverse fashion with a scalpel. The uterine incision was extended laterally. The infant's head was noted to be deep within the pelvis and was then was delivered without difficulty. The remainder of the infant delivered without difficulty. Delayed cord clamping was performed for 1 minute and the cord was then clamped x2 and cut and the was handed off to awaiting nurse practitioner. Cord gases were collected and then cord blood was obtained. The intact placenta with 3-vessel cord delivered without difficulty. The uterus was then exteriorized and cleared of all clots and debris and wrapped in a moist laparotomy sponge. Ovaries, uterus, and tubes were unremarkable. The bladder blade was then inserted. The bladder blade was then reinserted. The hysterotomy was closed with 0 Vicryl in a running locked fashion. A 2nd 0 Vicryl stitch was used to imbricate the uterine incision. Hemostasis was assured. The uterus was then returned to the patient's abdomen. The gutters were cleared of all clots and debris. Hysterotomy remained hemostatic. Peritoneum was reapproximated with 3-0 Vicryl in a running fashion. Rectus muscles reapproximated with 2-0 Vicryl in a running fashion. Fascia was closed with 0 Vicryl in a running fashion. Luis Alberto's tissue was reapproximated with 2-0 Vicryl in a running fashion. Subcuticular tissue was reapproximated with 3-0 Vicryl in a running fashion. The skin was then closed with bishop. Sponge, lap, and needle count correct x2. The patient was transported to recovery room in stable condition. /[id number]/MODL MTDD
[2017-07-23] MEDS: SENNOSIDES/DOCUSATE SODIUM TAB PO SCH (23:08)
[2017-07-24] MEDS: KETOROLAC 30 MG/1 ML SDV IVP SCH (05:27)
[2017-07-24] MEDS: SENNOSIDES/DOCUSATE SODIUM TAB PO SCH ×2 (08:13→22:03)
[2017-07-24] MEDS: IBUPROFEN 600 MG TAB PO PRN ×2 (11:47→18:17)
--- NOTE | 2017-07-24 13:20 | OBPP ---
Progress Note Assessment/Plan: Assessment: 1) s/p 1LTCS secondary to arrest of descent POD # 1 - pt is stable 2) Anemia - pt is asymptomatic Plan: Continue routine pp care Will start Bifera bid Pt may shower, dressing to be removed at that time Encourage ambulation Plan for d/c in 48 hrs 07/24/17 13:17 Subjective/ Course: 07/24/17 13:19 Pt seen and examined. Doing well, trying to breastfeed at the moment. Pain overall is well controlled. Has not had any [place] yet. She is OOB, hussein regular diet, voided x 2 without difficulty and passing flatus. Denies any f/c/n/v/CP or SOB. Mod lochia. She is working with . Objective: 07/24/17 05:45 Patient ABO/Rh O POSITIVE 07/21/17 12:45 Temp Pulse Resp BP Pulse Ox 36.6 C 82 16 86/57 L 94 07/24/17 08:00 07/24/17 08:00 07/24/17 08:00 07/24/17 08:00 07/24/17 08:00 Uterine Position/Fundal Height: Umbilicus -2 Uterine Tone: Firm Physical Exam - Physical Exam General Appearance: alert, no apparent distress, mild distress Respiratory: lungs clear, normal breath sounds Cardiac/Chest: regular rate, rhythm Abdomen: normal bowel sounds, non-tender, soft, flatus (+), incision (C/D/I with dressing in place), dressing (C/D/I) Extremities: non-tender, normal inspection Skin: normal color, warm/dry Neuro/Psych: alert, normal mood/affect, oriented x 3
[2017-07-24] MEDS ORDERED: MEASLES,MUMPS&RUBELLA VACC/PF 0.5 ML VIAL SC ONE (14:00)
[2017-07-24] MEDS: HYDROCODONE/APAP 5/325 TAB PO PRN ×2 (16:42→22:03)
[2017-07-24] MEDS: IRON POLYSAC/IRON HEME 28 MG TAB PO SCH ×2 (17:12→22:03)
[2017-07-25] MEDS: IBUPROFEN 600 MG TAB PO PRN ×4 (00:09→18:29)
[2017-07-25] MEDS: SENNOSIDES/DOCUSATE SODIUM TAB PO SCH ×2 (08:54→21:49)
[2017-07-25] MEDS: HYDROCODONE/APAP 5/325 TAB PO PRN ×3 (08:54→21:49)
[2017-07-25] MEDS: IRON POLYSAC/IRON HEME 28 MG TAB PO SCH ×2 (08:54→21:49)
--- NOTE | 2017-07-25 14:00 | OBPP ---
Progress Note Assessment/Plan: Assessment: pod # 2 s/p PLTCS for arrest of descent breast feeding anemia Plan: routine post care iron 07/25/17 13:49 Subjective/ Course: 07/24/17 13:19 Pt seen and examined. Doing well, trying to breastfeed at the moment. Pain overall is well controlled. Has not had any [place] yet. She is OOB, hussein regular diet, voided x 2 without difficulty and passing flatus. Denies any f/c/n/v/CP or SOB. Mod lochia. She is working with . 07/25/17 14:00 patient is doing well pain is well controlled. normal lochia. denies headache and changes in vision. working on breast feeding. will help set up pumping equipment. voiding without difficulty. passing gas. Objective: 07/24/17 05:45 Patient ABO/Rh O POSITIVE 07/21/17 12:45 Temp Pulse Resp BP Pulse Ox 36.1 C 75 16 96/62 L 98 07/24/17 20:45 07/24/17 20:45 07/24/17 20:45 07/24/17 20:45 07/24/17 20:45 Physical Exam - Physical Exam Neck: non-tender, full range of motion, supple Respiratory: chest non-tender, lungs clear, normal breath sounds Cardiac/Chest: normal peripheral pulses, regular rate, rhythm Abdomen: normal bowel sounds, non-tender Extremities: normal range of motion, non-tender, normal inspection, normal capillary refill Skin: normal color, warm/dry, other (incision clean dry and intact) Neuro/Psych: no motor/sensory deficits, alert, normal mood/affect, oriented x 3
[2017-07-26] MEDS: IBUPROFEN 600 MG TAB PO PRN ×3 (00:43→12:46)
[2017-07-26] MEDS: IRON POLYSAC/IRON HEME 28 MG TAB PO SCH (09:43)
[2017-07-26] MEDS: SENNOSIDES/DOCUSATE SODIUM TAB PO SCH ×2 (09:43→19:47)
--- NOTE | 2017-07-26 10:45 | OBPP ---
Progress Note Assessment/Plan: Assessment/Plan: 41 G1 POD#3 s/p primary LTCS 2/2 AOD/failed vacuum attempt, doing well, though struggling with and cracked nipples and drop about 10% in infant weight. 1) Continue routine post op cares. Anticipate dc home tomorrow. 2) Anemia - asymptomatic, continue Bifera bid 3) difficulties - will start APNO, continue to work with . Nanda Eller MD, FACOG [facility] 07/26/17 10:41 Subjective/ Course: 07/24/17 13:19 Pt seen and examined. Doing well, trying to breastfeed at the moment. Pain overall is well controlled. Has not had any [place] yet. She is OOB, hussein regular diet, voided x 2 without difficulty and passing flatus. Denies any f/c/n/v/CP or SOB. Mod lochia. She is working with . 07/25/17 14:00 patient is doing well pain is well controlled. normal lochia. denies headache and changes in vision. working on breast feeding. will help set up pumping equipment. voiding without difficulty. passing gas. 07/26/17 10:46 Doing well, though minimal sleep overnight. Nipples are cracked and bleeding, very sore. Is frustrated with baby weight loss. Ambulating and voiding without difficulty. Eating well. + flatus. no N/V. Pain mostly well controlled with ibuprofen, and prn [place]. Mod lochia. Objective: 07/24/17 05:45 Patient ABO/Rh O POSITIVE 07/21/17 12:45 Temp Pulse Resp BP Pulse Ox 36.0 C 72 18 104/71 98 07/26/17 07:46 07/26/17 07:46 07/26/17 07:46 07/26/17 07:46 07/26/17 07:46 Tm 37.1 Gen - pleasant, NAD CV - RRR chest - CTAB abd - soft, + BS, fundus firm at umbilicus ext - 1+ pitting edema, no calf tenderness Uterine Position/Fundal Height: Umbilicus -2 Uterine Tone: Firm
[2017-07-26] MEDS: HYDROCODONE/APAP 5/325 TAB PO PRN (16:41)
[2017-07-26 21:23] VITALS: BP 109/72
--- NOTE | 2017-07-28 07:14 | OBGCSDC ---
General Delivery Information - General Info : 1 Para: 1 Abortions: 0 Type: Primary L&D Analgesia/Anesthesia Type: Epidural, Spinal Admission Date: 07/21/17 Labs: Patient ABO/Rh O POSITIVE 07/21/17 12:45 Hct 32.7 % (38.0-47.0) L 07/24/17 05:45 - Hospital Course Intrapartum: Update: Today was started Pitocin for Ramona w/ balloon still in place. When she had regular ctx's (never painful) I took down the balloon at 180/-2 and offered AROM but pt wanted to wait. Ultimately Pit got to 18 without really any painful ctx's and when offered AROM in the late evening vs sleep overnight and AROM and Pit in the AM, she'd prefer the later. 07/22/17 09:18 Pt doing well. She denies any pain. She was able to rest throughout the night. She did eat breakfast. She is ready to "restart" her IOL. She is agreeable to knight balloon. 07/22/17 13:17 Pt doing well, denies any pain. She is ambulating and moving well. Knight balloon out at 12:30pm. agreeable to membrane sweep- declines arom at this time. 07/22/17 16:13 Pt doing well, she is resting in bed. She denies any pain or pressure. Deniz, , is at BS and supportive. 07/22/17 18:25 Pt vomiting and having chills. She denies any pain or pressure. she is feeling more with contractions, having to breathe through them. Desires to labor in alternative positions (squat bar, ball, stool, etc). Deniz is at BS and supportive. 07/22/17 22:44 Pt doing well, KURT just placed. She is resting. 07/23/17 03:38 Pt doing well, denies any pain. She is comfortable with KURT, she has been able to rest more now that she is more comfortable. She is been sitting in high fowlers position as that is best for FHR. She does not wish to proceed with C/S , aware of protracted labor course. at BS and supportive. 07/23/17 07:55 I was called into assess FHTs and labor progress approx 5am. Pt has had off/on late decels throughout much of labor with more cervical change since 4 am - she was 5 cm at 3am but progress to 8cm then complete dilation at 5:13. pt began pushing and hoped to avoid vacuum but she had rise in baseline and persistence of the late decels and I rec vacuum asst. Head at +1 station in OT position - little caput initially but has progressed over time. Pt and husb agreed and vacuum was placed and 3 pulls with ctxns, no pop-offs were done approx 6:30. no descent with assistance of vacuum. Vacuum attempt stopped but then FHTs improved and baseline back to 150s between ctxns with very reassuring variability and pt cont attempts with pushing with changes of position/sheet pull/ hand-knees etc. Pt had then add'n pushing for approx 45 min but no further descent and pt wishes to proceed with C/S for delivery. risks/ benefits discussed with pt by Dr Glover and consent to be signed later. Fhts have maintained reassuring variability and when pit stopped then baseline 140s with no decels. Dr Hernandez of anesth dosing up KURT for c/s delivery. : 07/24/17 13:19 Pt seen and examined. Doing well, trying to breastfeed at the moment. Pain overall is well controlled. Has not had any Woodruff yet. She is OOB, hussein regular diet, voided x 2 without difficulty and passing flatus. Denies any f/c/n/v/CP or SOB. Mod lochia. She is working with . 07/25/17 14:00 patient is doing well pain is well controlled. normal lochia. denies headache and changes in vision. working on breast feeding. will help set up pumping equipment. voiding without difficulty. passing gas. 07/26/17 10:46 Doing well, though minimal sleep overnight. Nipples are cracked and bleeding, very sore. Is frustrated with baby weight loss. Ambulating and voiding without difficulty. Eating well. + flatus. no N/V. Pain mostly well controlled with ibuprofen, and prn Woodruff. Mod lochia. 07/28/17 07:12 S) Pt doing well, reports min pain and bleeding. she is ambulating and voiding without difficulty. She is . She desires discharge home today. O)07/27/17 VSS, afebrile constitutional: WNWF, A&Ox3 HEENT: normocephalic, atraumatic, supple Heart: RRR, No murmur Chest: CTA-B Abdomen: Soft, nontender Uterus: Firm at U-2 Lochia: Minimal rubra Perineum: Intact, healing well Extremities: Trace edema, and negative Velma's sign Neuro: Grossly normal A) 41 year-old S/P PPD#2 going well P) Discharge home today Continue Pelvic rest x6wks Discussed danger signs (infection, preeclampsia, depression, heavy bleeding, etc) RTO in 4/6 weeks Vaginal - Diagnosis Amniotic Fluid Color: Clear - Procedures Non-surgical Procedures: IUPC (placed @ 1815) - Delivery Providers Surgeon: Lima Glover Rubber Mold Maker: Tania Medellin Anesthesiologist: Jr Hernandez - Delivery Indications for Current Section: Arrest of Descent Non-surgical Procedures: IUPC (placed @ 1815) Surgical Procedures: Unscheduled, Low Transverse EBL: 800 [place] Data ZANE: 07/25/17 Gestational Age: 40 week(s) and 3 day(s) [place] Delivery Date: 07/23/17 Delivery Time: 08:54 Sex of : Female [place] Weight (gm): 3398 kg Score (1 Min): 8 Score (5 Min): 9 Discharge Information - Discharge Information Condition: Good Instruction/Follow Up: See Instruction Sheet, Four Weeks, Six Weeks
--- NOTE | 2017-07-28 07:18 | OBGCSDC ---
General Delivery Information - General Info : 1 Para: 1 Abortions: 0 Type: Primary L&D Analgesia/Anesthesia Type: Epidural, Spinal Admission Date: 07/21/17 Labs: Patient ABO/Rh O POSITIVE 07/21/17 12:45 Hct 32.7 % (38.0-47.0) L 07/24/17 05:45 - Hospital Course Intrapartum: Update: Today was started Pitocin for Ramona w/ balloon still in place. When she had regular ctx's (never painful) I took down the balloon at 180/-2 and offered AROM but pt wanted to wait. Ultimately Pit got to 18 without really any painful ctx's and when offered AROM in the late evening vs sleep overnight and AROM and Pit in the AM, she'd prefer the later. 07/22/17 09:18 Pt doing well. She denies any pain. She was able to rest throughout the night. She did eat breakfast. She is ready to "restart" her IOL. She is agreeable to knight balloon. 07/22/17 13:17 Pt doing well, denies any pain. She is ambulating and moving well. Knight balloon out at 12:30pm. agreeable to membrane sweep- declines arom at this time. 07/22/17 16:13 Pt doing well, she is resting in bed. She denies any pain or pressure. Deniz, , is at BS and supportive. 07/22/17 18:25 Pt vomiting and having chills. She denies any pain or pressure. she is feeling more with contractions, having to breathe through them. Desires to labor in alternative positions (squat bar, ball, stool, etc). Deniz is at BS and supportive. 07/22/17 22:44 Pt doing well, KURT just placed. She is resting. 07/23/17 03:38 Pt doing well, denies any pain. She is comfortable with KURT, she has been able to rest more now that she is more comfortable. She is been sitting in high fowlers position as that is best for FHR. She does not wish to proceed with C/S , aware of protracted labor course. at BS and supportive. 07/23/17 07:55 I was called into assess FHTs and labor progress approx 5am. Pt has had off/on late decels throughout much of labor with more cervical change since 4 am - she was 5 cm at 3am but progress to 8cm then complete dilation at 5:13. pt began pushing and hoped to avoid vacuum but she had rise in baseline and persistence of the late decels and I rec vacuum asst. Head at +1 station in OT position - little caput initially but has progressed over time. Pt and husb agreed and vacuum was placed and 3 pulls with ctxns, no pop-offs were done approx 6:30. no descent with assistance of vacuum. Vacuum attempt stopped but then FHTs improved and baseline back to 150s between ctxns with very reassuring variability and pt cont attempts with pushing with changes of position/sheet pull/ hand-knees etc. Pt had then add'n pushing for approx 45 min but no further descent and pt wishes to proceed with C/S for delivery. risks/ benefits discussed with pt by Dr Glover and consent to be signed later. Fhts have maintained reassuring variability and when pit stopped then baseline 140s with no decels. Dr Hernandez of anesth dosing up KURT for c/s delivery. : 07/24/17 13:19 Pt seen and examined. Doing well, trying to breastfeed at the moment. Pain overall is well controlled. Has not had any Osgood yet. She is OOB, hussein regular diet, voided x 2 without difficulty and passing flatus. Denies any f/c/n/v/CP or SOB. Mod lochia. She is working with . 07/25/17 14:00 patient is doing well pain is well controlled. normal lochia. denies headache and changes in vision. working on breast feeding. will help set up pumping equipment. voiding without difficulty. passing gas. 07/26/17 10:46 Doing well, though minimal sleep overnight. Nipples are cracked and bleeding, very sore. Is frustrated with baby weight loss. Ambulating and voiding without difficulty. Eating well. + flatus. no N/V. Pain mostly well controlled with ibuprofen, and prn Osgood. Mod lochia. 07/27/17 07:12 S) Pt doing well, reports min pain and bleeding. she is ambulating and voiding without difficulty. She is . She desires discharge home today. O) VSS, afebrile constitutional: WNWF, A&Ox3 HEENT: normocephalic, atraumatic, supple Heart: RRR, No murmur Chest: CTA-B Abdomen: Soft, nontender Uterus: Firm at U-2 Lochia: Minimal rubra Perineum: Intact, healing well Extremities: Trace edema, and negative Velma's sign Neuro: Grossly normal A) 41 year-old S/P Section PPD#4 going well P) Discharge home today Routine pp/post op instructions Continue Pelvic rest x6wks Discussed danger signs (infection, preeclampsia, depression, heavy bleeding, etc) RTO in 2 weeks for incision check - and 4/6 weeks 07/28/17 07:16 Vaginal - Diagnosis Amniotic Fluid Color: Clear - Procedures Non-surgical Procedures: IUPC (placed @ 1815) - Delivery Providers Surgeon: Lima Glover Controller Mechanic: Tania Medellin Anesthesiologist: Jr Hernandez - Delivery Indications for Current Section: Arrest of Descent Non-surgical Procedures: IUPC (placed @ 1815) Surgical Procedures: Unscheduled, Low Transverse EBL: 800 Data ZANE: 07/25/17 Gestational Age: 40 week(s) and 3 day(s) [facility] Delivery Date: 07/23/17 Delivery Time: 08:54 Sex of Infant: Female [place] Weight (gm): 3398 kg Score (1 Min): 8 Score (5 Min): 9 Discharge Information - Discharge Information Condition: Good Instruction/Follow Up: See Instruction Sheet, Four Weeks, Six Weeks
== END 2017-07-27 14:30 | disposition home or self-care (01) | DRG 766 ==
LOC: FLD 07-21 11:50 → FOB 07-23 11:26
PROVIDERS: ADMIT Obstetrics & Gynecology; ATTEND Obstetrics & Gynecology
PROC: 3E033VJ Introduction of Other Hormone into Peripheral Vein, Percutaneous Approach (ICD-10-PCS; principal; 2017-07-23)
PROC: 10D00Z1 Extraction of Products of Conception, Low, Open Approach (ICD-10-PCS; principal; 2017-07-23)
DX: O32.4XX0 Maternal care for high head at term, not applicable or unspecified (principal); O76 Abnormality in fetal heart rate and rhythm complicating labor and delivery; O99.820 Streptococcus B carrier state complicating pregnancy; O99.03 Anemia complicating the puerperium; Z23 Encounter for immunization; Z3A.39 39 weeks gestation of pregnancy; Z37.0 Single live birth
CPT/HCPCS: J0290; J0690; J1885; J2274; J2370; J2405; J2590; J3010